=== PATIENT | female | born 1955 | race Caucasian/White ===

== ENCOUNTER → 2016-10-22 | Outpatient (CLI) | payer BC ==
[2016-10-22 09:59] LABS: Basophils # (A) 0.1 k/uL (0-0.2); Basophils % (A) 1 %; CH 27.6; CHCM 33.5; Eosinophils # (A) 0.2 k/uL (0-0.7); Eosinophils % (A) 3 %; HCT 43.1 % (34.0-46.0); HDW 2.62; HGB 14.1 gm/dL (11.4-16.0); Luc % (Auto) 3; Lymphocytes # (A) 1.9 k/uL (1.0-4.8); Lymphocytes % (A) 25 %; MCH 27.1 pg (25.0-35.0); MCHC 32.7 g/dL (31.0-37.0); MCV 82.7 fL (80.0-100.0); Mean Platelet Volume 6.8; Monocytes # (A) 0.4 k/uL (0-1.0); Monocytes % (A) 5 %; Neutrophils # (A) 4.7 k/uL (1.3-7.7); Neutrophils % (A) 63 %; RBC 5.21 m/uL (3.80-5.40); RDW 14.2 % (11.5-15.5); WBC 7.5 k/uL (3.8-10.6); WBC (Perox) 7.05
[2016-10-22 12:03] LABS: Erythrocyte Sedimentation Rate 10 mm/hr (0-20)
[2016-10-22 13:41] LABS: ALT 37 U/L (9-52); AST 22 U/L (14-36); Alkaline Phosphatase 112 U/L (38-126); Anion Gap 13 mmol/L; Blood Urea Nitrogen 11 mg/dL (7-17); C Reactive Protein <5.0 mg/L (<10.0); Calcium 10.2 mg/dL (8.4-10.2); Carbon Dioxide 24 mmol/L (22-30); Chloride 104 mmol/L (98-107); Cholesterol 161 mg/dL (<200); Creatine Kinase 87 U/L (30-135); Glucose 114 mg/dL (74-99); HDL Cholesterol 59 mg/dL (40-60); Non-African American GFR(MDRD) >60 (>60 ml/min/1.73 sqM); Potassium 4.4 mmol/L (3.5-5.1); Sodium 141 mmol/L (137-145); Total Bilirubin 0.6 mg/dL (0.2-1.3); Total Protein 7.7 g/dL (6.3-8.2); Triglycerides 138 mg/dL (<150)
== END | disposition home or self-care (01) ==
LOC: LABWHC1 09:16
PROVIDERS: ATTEND Internal Medicine
DX: Z00.00 Encounter for general adult medical examination without abnormal findings (principal); E87.8 Other disorders of electrolyte and fluid balance, not elsewhere classified; I10 Essential (primary) hypertension; E55.9 Vitamin D deficiency, unspecified; E78.5 Hyperlipidemia, unspecified
CPT/HCPCS: 36415; 80053; 80061; 82306; 82550; 84439; 84443; 85025; 85652; 86140

== ENCOUNTER → 2016-11-27 | Outpatient (CLI) | payer BC ==
--- NOTE | 2016-11-28 13:24 | MM ---
Reason for exam: screening (asymptomatic). Last mammogram was performed 1 year and 11 months ago. History: Patient is postmenopausal. Family history of breast cancer in cousin at age 46. Physical Findings: A clinical breast exam by your physician is recommended on an annual basis and results should be correlated with mammographic findings. MG Screening Mammo w CAD Bilateral CC and MLO view(s) were taken. The breast tissue is heterogeneously dense. This may lower the sensitivity of mammography. Benign calcifications. There is no discrete abnormality. No significant changes when compared with prior studies. ASSESSMENT: Benign, BI-RAD 2 RECOMMENDATION: Routine screening mammogram of both breasts in 1 year.
== END | disposition home or self-care (01) ==
LOC: RADMAMWWP 07:22
PROVIDERS: ATTEND Internal Medicine
DX: Z12.31 Encounter for screening mammogram for malignant neoplasm of breast (principal)

== ENCOUNTER 2017-01-05 08:58 | Outpatient (CLI) | payer BC ==
[2017-01-05 09:31] LABS: Aty Lym Flag Slight; CH 27.4; CHCM 32.4; HCT 44.3 % (34.0-46.0); HDW 2.58; HGB 14.3 gm/dL (11.4-16.0); MCH 27.5 pg (25.0-35.0); MCHC 32.3 g/dL (31.0-37.0); MCV 85.1 fL (80.0-100.0); Mean Platelet Volume 6.6; RBC 5.21 m/uL (3.80-5.40); RDW 14.1 % (11.5-15.5); WBC 6.9 k/uL (3.8-10.6); WBC (Perox) 6.89
[2017-01-05 09:39] LABS: Add Differential Manual Differential
[2017-01-05 09:41] LABS: Nucleated Red Blood Cells 0 /100 WBC (0-0); Polychromasia Present; Total Cells Counted 100
--- NOTE | 2017-01-05 09:41 | XR ---
EXAMINATION TYPE: XR chest 2V DATE OF EXAM: 01/05/2017 9:33 AM COMPARISON: 02/02/2012 HISTORY: 61-year-old female cough, bronchitis, rule out pneumonia TECHNIQUE: Frontal and lateral views FINDINGS: The cardiomediastinal silhouette, aorta, and pulmonary vasculature are within normal limits. Other di ffuse interstitial prominence is unchanged. No consolidation or pleural effusion. Anterior endplate s pondylosis especially in the mid to lower thoracic spine. IMPRESSION: Chronic changes without acute cardiopulmonary process.
--- NOTE | 2017-01-05 09:43 | XR ---
EXAMINATION TYPE: XR thoracic spine complete DATE OF EXAM: 01/05/2017 9:33 AM COMPARISON: NONE HISTORY: 61-year-old female pain for 5 days, evaluate for compression. Rib tenderness. TECHNIQUE: 3 views FINDINGS: 12 rib-bearing thoracic vertebral bodies. The pedicles are visualized. There is mild multilevel degen erative disc disease with bulky bridging anterior endplate spondylosis especially in the mid to lower thoracic spine. Alignment is maintained and vertebral body heights are preserved. IMPRESSION: 1. No vertebral compression collapse or malalignment. 2. At least mild multilevel degenerative disc disease though with bulky bridging endplate spondylosis in the mid to lower thoracic spine suggestive of DISH.
== END 2017-01-05 09:43 | disposition home or self-care (01) ==
LOC: LABWHC1 08:58
PROVIDERS: ATTEND Internal Medicine
DX: J40 Bronchitis, not specified as acute or chronic (principal); M51.34 Other intervertebral disc degeneration, thoracic region; M47.814 Spondylosis without myelopathy or radiculopathy, thoracic region; R07.81 Pleurodynia
CPT/HCPCS: 36415; 71020; 72072; 85025; 87502; 99212

== ENCOUNTER → 2017-10-12 | Outpatient (CLI) | payer BC ==
[2017-10-12 12:07] LABS: Anion Gap 10 mmol/L; Blood Urea Nitrogen 9 mg/dL (7-17); Calcium 9.7 mg/dL (8.4-10.2); Carbon Dioxide 28 mmol/L (22-30); Chloride 105 mmol/L (98-107); Glucose 110 mg/dL (74-99); Potassium 4.7 mmol/L (3.5-5.1); Sodium 143 mmol/L (137-145)
[2017-10-12 12:22] LABS: T4, Free (Free Thyroxine) 1.02 ng/dL (0.78-2.19)
== END ==
LOC: LABWHC1 10:33
PROVIDERS: ATTEND Internal Medicine
DX: E87.8 Other disorders of electrolyte and fluid balance, not elsewhere classified (principal); E03.9 Hypothyroidism, unspecified
CPT/HCPCS: 36415; 80048; 84439; 84443

== ENCOUNTER → 2018-03-18 | Outpatient (CLI) | payer BC ==
--- NOTE | 2018-03-19 10:31 | MM ---
Reason for exam: screening (asymptomatic). Last mammogram was performed 1 year and 4 months ago. History: Patient is postmenopausal. Family history of breast cancer in cousin at age 46. Physical Findings: A clinical breast exam by your physician is recommended on an annual basis and results should be correlated with mammographic findings. MG Screening Mammo w CAD Bilateral CC and MLO view(s) were taken. Prior study comparison: November 27, 2016, bilateral MG screening mammo w CAD. December 28, 2014, bilateral MG screening mammo w CAD. The breast tissue is heterogeneously dense. This may lower the sensitivity of mammography. Benign appearing bilateral calcifications. No suspicious abnormality. No significant changes when compared with prior studies. ASSESSMENT: Benign, BI-RAD 2 RECOMMENDATION: Routine screening mammogram of both breasts in 1 year.
== END | disposition home or self-care (01) ==
LOC: RADMAMWWP 06:56
PROVIDERS: ATTEND Internal Medicine
DX: Z12.31 Encounter for screening mammogram for malignant neoplasm of breast (principal)
CPT/HCPCS: 77067

== ENCOUNTER → 2018-05-28 | Outpatient (CLI) | payer MEDICARE, OTHER ==
--- NOTE | 2018-05-28 16:30 | XR ---
EXAMINATION TYPE: XR elbow complete RT DATE OF EXAM: 05/28/2018 COMPARISON: None HISTORY: Tendinitis TECHNIQUE: Three-view right elbow FINDINGS: No anterior fat pad elevation is evident. There may be calcifications in the posterior join t space. Radius aligns normally with the humerus. Degenerative changes are radial head IMPRESSION: 1. Degenerative changes without acute fracture. 2. Suspected free osseous bodies within the posterior joint space
== END | disposition home or self-care (01) ==
LOC: RADXRMAIN 07:20
PROVIDERS: ATTEND Internal Medicine
DX: M19.021 Primary osteoarthritis, right elbow (principal)

== ENCOUNTER → 2018-10-02 | Outpatient (CLI) | payer MEDICARE, OTHER ==
[2018-10-02 09:42] LABS: Basophils # (A) 0.1 k/uL (0-0.2); Basophils % (A) 1 %; Eosinophils # (A) 0.1 k/uL (0-0.7); Eosinophils % (A) 1 %; HCT 43.1 % (34.0-46.0); Lymphocytes % (A) 10 %; MCH 26.6 pg (25.0-35.0); MCHC 32.4 g/dL (31.0-37.0); MCV 82.1 fL (80.0-100.0); Mean Platelet Volume 6.4; Monocytes # (A) 0.5 k/uL (0-1.0); Monocytes % (A) 5 %; Neutrophils # (A) 8.8 k/uL (1.3-7.7); Neutrophils % (A) 82 %; Platelet Count 308 k/uL (150-450); RBC 5.25 m/uL (3.80-5.40); RDW 14.2 % (11.5-15.5); WBC 10.7 k/uL (3.8-10.6)
[2018-10-02 11:51] LABS: Erythrocyte Sedimentation Rate 18 mm/hr (0-20)
[2018-10-02 17:24] LABS: Albumin 4.5 g/dL (3.80-4.90); Albumin/Globulin Ratio 1.96 (1.20-2.10); Calcium 9.2 mg/dL (8.7-10.3); Globulin 2.3 g/dL (1.6-3.3); LDL Cholesterol,Calculated 78.6 mg/dL (0.0-131.0); Potassium 4.1 mmol/L (3.5-5.5); Total Bilirubin 0.7 mg/dL (0.3-1.2); Total Protein 6.8 g/dL (6.2-8.2); VLDL Calculation 21.4 mg/dL (5.00-40.00)
[2018-10-02 17:32] LABS: T4, Free (Free Thyroxine) 1.1 ng/dL (0.80-1.80)
== END ==
LOC: LABWHC1 08:17
PROVIDERS: ATTEND Internal Medicine
DX: E78.5 Hyperlipidemia, unspecified (principal); E55.9 Vitamin D deficiency, unspecified; I10 Essential (primary) hypertension
CPT/HCPCS: 36415; 80053; 80061; 82306; 82550; 84439; 84443; 85025; 85652; 86140

== ENCOUNTER → 2019-04-27 | Outpatient (CLI) | payer MEDICARE, OTHER ==
[2019-04-27 12:21] LABS: Basophils # (A) 0.1 k/uL (0-0.2); Basophils % (A) 1 %; Eosinophils # (A) 0.2 k/uL (0-0.7); Eosinophils % (A) 3 %; HCT 42.3 % (34.0-46.0); HGB 13.6 gm/dL (11.4-16.0); Lymphocytes # (A) 1.7 k/uL (1.0-4.8); Lymphocytes % (A) 24 %; MCH 26.8 pg (25.0-35.0); MCHC 32.1 g/dL (31.0-37.0); MCV 83.4 fL (80.0-100.0); Mean Platelet Volume 7.4; Monocytes # (A) 0.4 k/uL (0-1.0); Monocytes % (A) 6 %; Neutrophils # (A) 4.8 k/uL (1.3-7.7); Neutrophils % (A) 65 %; Platelet Count 257 k/uL (150-450); RBC 5.07 m/uL (3.80-5.40); RDW 15.6 % (11.5-15.5); WBC 7.4 k/uL (3.8-10.6)
[2019-04-27 17:51] LABS: C Reactive Protein 0.4 mg/dL (0.0-0.8)
== END | disposition home or self-care (01) ==
LOC: LABWHC1 11:08
PROVIDERS: ATTEND Internal Medicine
DX: E11.9 Type 2 diabetes mellitus without complications (principal); E78.5 Hyperlipidemia, unspecified; I10 Essential (primary) hypertension; E55.9 Vitamin D deficiency, unspecified; R79.89 Other specified abnormal findings of blood chemistry
CPT/HCPCS: 36415; 82306; 82947; 85025; 86140

== ENCOUNTER → 2019-06-12 | Outpatient (CLI) | payer MEDICARE, OTHER ==
--- NOTE | 2019-06-15 08:23 | MM ---
Reason for exam: screening (asymptomatic). Last mammogram was performed 1 year and 3 months ago. History: Patient is postmenopausal. Family history of breast cancer in cousin at age 46. Physical Findings: A clinical breast exam by your physician is recommended on an annual basis and results should be correlated with mammographic findings. MG Screening Mammo w CAD Bilateral CC and MLO view(s) were taken. Prior study comparison: March 18, 2018, bilateral MG screening mammo w CAD. November 27, 2016, bilateral MG screening mammo w CAD. The breast tissue is heterogeneously dense. This may lower the sensitivity of mammography. There are benign appearing round, linear, dystrophic calcifications bilaterally. There is no discrete abnormality. ASSESSMENT: Benign, BI-RAD 2 RECOMMENDATION: Routine screening mammogram of both breasts in 1 year.
== END | disposition home or self-care (01) ==
LOC: RADMAMWWP 06:59
PROVIDERS: ATTEND Internal Medicine
DX: Z12.31 Encounter for screening mammogram for malignant neoplasm of breast (principal); Z90.12 Acquired absence of left breast and nipple
CPT/HCPCS: 77067

== ENCOUNTER → 2020-06-24 | Outpatient (CLI) | payer MEDICARE, OTHER ==
[2020-06-24 09:39] LABS: Basophils # (A) 0.1 k/uL (0-0.2); Basophils % (A) 1 %; Eosinophils # (A) 0.3 k/uL (0-0.7); Eosinophils % (A) 4 %; HCT 41.4 % (34.0-46.0); Lymphocytes # (A) 1.8 k/uL (1.0-4.8); Lymphocytes % (A) 26 %; MCH 27.3 pg (25.0-35.0); MCHC 33.9 g/dL (31.0-37.0); MCV 80.7 fL (80.0-100.0); Mean Platelet Volume 6.9; Monocytes # (A) 0.5 k/uL (0-1.0); Monocytes % (A) 8 %; Neutrophils # (A) 4.3 k/uL (1.3-7.7); Neutrophils % (A) 60 %; Platelet Count 270 k/uL (150-450); RBC 5.12 m/uL (3.80-5.40); RDW 14.2 % (11.5-15.5); WBC 7.2 k/uL (3.8-10.6)
[2020-06-24 16:21] LABS: African American GFR (CKD) 103.9 (60.0-200.0); Albumin 4.3 g/dL (3.80-4.90); Albumin/Globulin Ratio 1.79 (1.60-3.17); Anion Gap 9.2 mmol/L (4.00-12.00); BUN/Creat Ratio 18.57 Ratio (12.00-20.00); Calcium 9.4 mg/dL (8.7-10.3); Carbon Dioxide 23.8 mmol/L (21.6-31.8); Chol/HDL Ratio 3.11; Globulin 2.4 g/dL (1.6-3.3); Non-African American GFR(CKD) 89.7 (60.0-200.0); Potassium 4.1 mmol/L (3.5-5.5); Total Bilirubin 0.8 mg/dL (0.3-1.2); Total Protein 6.7 g/dL (6.2-8.2)
[2020-06-24 16:32] LABS: Erythrocyte Sedimentation Rate 17 mm/Hr (0-30)
[2020-06-24 16:34] LABS: T4, Free (Free Thyroxine) 0.9 ng/dL (0.80-1.80)
== END | disposition home or self-care (01) ==
LOC: LABWHC1 08:11
PROVIDERS: ATTEND Internal Medicine
DX: I10 Essential (primary) hypertension (principal); E78.5 Hyperlipidemia, unspecified; E03.9 Hypothyroidism, unspecified; E66.9 Obesity, unspecified
CPT/HCPCS: 36415; 80053; 80061; 84439; 84443; 85025; 85652

== ENCOUNTER → 2020-09-22 | Outpatient (CLI) | payer MEDICARE, OTHER ==
[2020-09-22 09:16] LABS: Basophils % (A) 1 %; Eosinophils # (A) 0.2 k/uL (0-0.7); Eosinophils % (A) 2 %; HCT 38.3 % (34.0-46.0); HGB 13.1 gm/dL (11.4-16.0); Lymphocytes # (A) 1.3 k/uL (1.0-4.8); Lymphocytes % (A) 19 %; MCH 27.9 pg (25.0-35.0); MCHC 34.2 g/dL (31.0-37.0); MCV 81.5 fL (80.0-100.0); Mean Platelet Volume 6.9; Monocytes # (A) 0.5 k/uL (0-1.0); Monocytes % (A) 7 %; Neutrophils # (A) 4.9 k/uL (1.3-7.7); Neutrophils % (A) 69 %; Platelet Count 249 k/uL (150-450); RDW 14.3 % (11.5-15.5); WBC 7.1 k/uL (3.8-10.6)
[2020-09-22 14:57] LABS: ALT 24 U/L (8-44); AST 18 U/L (13-35); African American GFR (CKD) 103.9 (60.0-200.0); Albumin/Globulin Ratio 1.88 (1.60-3.17); Alkaline Phosphatase 105 U/L (41-126); C Reactive Protein <0.4 mg/dL (0.0-0.8); Calcium 9.2 mg/dL (8.7-10.3); Carbon Dioxide 26.8 mmol/L (21.6-31.8); Chloride 105 mmol/L (96-109); Globulin 2.4 g/dL (1.6-3.3); Glucose 113 mg/dL (70-110); Non-African American GFR(CKD) 89.7 (60.0-200.0); Sodium 140 mmol/L (135-145); Total Bilirubin 0.6 mg/dL (0.3-1.2); Total Protein 6.9 g/dL (6.2-8.2)
== END | disposition home or self-care (01) ==
LOC: LABWHC1 08:04
PROVIDERS: ATTEND Internal Medicine
DX: Z00.00 Encounter for general adult medical examination without abnormal findings (principal); E55.9 Vitamin D deficiency, unspecified; E03.9 Hypothyroidism, unspecified; E78.5 Hyperlipidemia, unspecified; D64.9 Anemia, unspecified
CPT/HCPCS: 36415; 80053; 82306; 84443; 85025; 86140

== ENCOUNTER 2020-12-01 09:15 | Emergency (ER) | payer MEDICARE, OTHER ==
--- NOTE | 2020-12-01 10:15 | ED ---
Headache HPI - General Chief Complaint: Headache Stated Complaint: Fever, Headache Time Seen by Provider: 12/01/20 09:20 Source: RN notes reviewed Mode of arrival: ambulatory Limitations: no limitations - History of Present Illness Initial Comments: This is a 65-year-old female who presents with complaints of waking up with a right-sided forehead type pain with the fever some congestion. He states pain is 4/10 severity somewhat dull in nature. No earache sore throat she does have slight amount of clear rhinorrhea no cough no shortness of breath. She states she was recently exposed to someone with SARS Covid 19. Additionally she complains a left shoulder pain she states her mother who now lives with her balance she caught her sinuses a couple days ago. She complains of anterior right shoulder pain. No other complaints MD Complaint: headache, other - Related Data Home Medications Medication Instructions Recorded Confirmed Atorvastatin [Lipitor] 20 mg PO DAILY 11/10/14 11/10/15 Levothyroxine Sodium [Synthroid] 100 mcg PO DAILY 11/10/14 11/10/15 Lisinopril [Zestril] 10 mg PO BID 11/10/14 11/10/15 Levofloxacin [Levaquin] 750 mg PO DAILY 11/10/15 11/10/15 Previous Rx's Medication Instructions Recorded Azithromycin [Zithromax Z-pack (6 250 mg PO DIRECTED 5 Days #6 tab 12/01/20 tabs)] Allergies Allergy/AdvReac Type Severity Reaction Status Date / Time acetaminophen Allergy Rash/Hives Verified 12/01/20 09:20 [From Darvocet-N] cephalexin monohydrate Allergy Nausea & Verified 12/01/20 09:20 [From Keflex] Vomiting latex Allergy Rash/Hives Verified 12/01/20 09:20 nickel Allergy Swelling Verified 12/01/20 09:20 Penicillins Allergy Rash/Hives Verified 12/01/20 09:20 propoxyphene napsylate Allergy Rash/Hives Verified 12/01/20 09:20 [From Darvocet-N] sulfamethoxazole Allergy Rash/Hives Verified 12/01/20 09:20 [From Bactrim] trimethoprim [From Bactrim] Allergy Rash/Hives Verified 12/01/20 09:20 Review of Systems ROS Statement: Those systems with pertinent positive or pertinent negative responses have been documented in the HPI. ROS Other: All systems not noted in ROS Statement are negative. Past Medical History Past Medical History: Hyperlipidemia, Hypertension, Thyroid Disorder History of Any Multi-Drug Resistant Organisms: None Reported Past Surgical History: Orthopedic Surgery, Tubal Ligation Additional Past Surgical History / Comment(s): rt knee Past Psychological History: No Psychological Hx Reported Past Alcohol Use History: None Reported Past Drug Use History: None Reported General Exam - General Exam Comments Initial Comments: This a well-developed well-nourished awake alert oriented 3 female Limitations: no limitations General appearance: alert Head exam: Present: atraumatic, normocephalic, normal inspection, other ( Tenderness to percussion over right frontal sinus) Eye exam: Present: normal appearance, PERRL, EOMI. Absent: scleral icterus, conjunctival injection, periorbital swelling ENT exam: Present: TM's normal bilaterally, other (Boggy nasal mucosa no drainage at this time) Neck exam: Present: normal inspection, tenderness (Tenderness palpation over the left trapezius musculature. No spinous process tenderness), full ROM ( is muscle tenderness) Respiratory exam: Present: normal lung sounds bilaterally. Absent: respiratory distress, wheezes, rales, rhonchi, stridor Cardiovascular Exam: Present: regular rate, normal rhythm, normal heart sounds. Absent: systolic murmur, diastolic murmur, rubs, gallop, clicks Extremities exam: Present: normal inspection, full ROM, tenderness (Slight facial left anterior), normal capillary refill. Absent: pedal edema, joint swelling, calf tenderness Back exam: Present: normal inspection, full ROM. Absent: muscle spasm, paraspinal tenderness, vertebral tenderness Psychiatric exam: Present: normal affect, normal mood Skin exam: Present: warm, dry, intact, normal color. Absent: rash Course Vital Signs 12/01/20 09:16 Temperature 99.0 F Pulse Rate 69 Respiratory 16 Rate Blood Pressure 163/81 O2 Sat by Pulse 98 Oximetry Medical Decision Making - Medical Decision Making Patient did test negative for the various nasal swab. The presentation is consistent with a frontal sinusitis as well as a left shoulder strain. Did discuss the shoulder strain she'll be placed warm compresses on the affected muscle groups and use [id number] pain medication for this with respect to the sinusitis he will be placed on appropriate antibiotic and we did recommend Mucinex. - Lab Data Lab Results 12/01/20 Range/Units 09:53 Influenza Type A (PCR) Not Detected (Not Detectd) Influenza Type B (PCR) Not Detected (Not Detectd) RSV (PCR) Not Detected (Not Detectd) SARS-CoV-2 (PCR) Not Detected (Not Detectd) - Radiology Data Radiology results: report reviewed (I did review the imaging and report no acute findings), image reviewed Disposition Clinical Impression: Acute frontal sinusitis, Left shoulder strain, Febrile illness, acute, Headache Disposition: HOME SELF-CARE Condition: Good Instructions (If sedation given, give patient instructions): Acute Headache (ED), Sinusitis (ED), Fever in Adults (ED) Additional Instructions: Rhfe-qiq-vuoppos Mucinex for the sinuses. [id number]-[id number] ibuprofen for the left shoulder strain Prescriptions: Azithromycin [Zithromax Z-pack (6 tabs)] 250 mg PO DIRECTED 5 Days #6 tab Is patient prescribed a controlled substance at d/c from ED?: No Referrals: Mehran Crowder MD [Primary Care Provider] - 1-2 days
--- NOTE | 2020-12-01 10:53 | XR ---
EXAMINATION TYPE: XR shoulder complete LT DATE OF EXAM: 12/01/2020 CLINICAL HISTORY: Injury with pain. TECHNIQUE: Three views of the left shoulder are obtained. COMPARISON: None. FINDINGS: There is no acute fracture/dislocation evident in the left shoulder. Mild to moderate narr owing and mild spurring acromioclavicular joint. Mild narrowing and spurring glenohumeral joint. Dis geoffrey acromion morphology unremarkable. There are old fractures of the posterolateral right sixth and s eventh ribs incidentally noted. IMPRESSION: There is no acute fracture or dislocation in the left shoulder.
[2020-12-01 12:12] VITALS: BP 133/91; PULSE 60; RESP 18; TEMP 99
== END 2020-12-01 12:10 | disposition home or self-care (01) ==
LOC: EC 09:15
DX: S46.912A Strain of unspecified muscle, fascia and tendon at shoulder and upper arm level, left arm, initial encounter (principal); J01.10 Acute frontal sinusitis, unspecified; I10 Essential (primary) hypertension; E78.5 Hyperlipidemia, unspecified; Z88.0 Allergy status to penicillin; Z20.822 Contact with and (suspected) exposure to COVID-19; X58.XXXA Exposure to other specified factors, initial encounter
CPT/HCPCS: 87636; 99284

== ENCOUNTER → 2021-04-03 | Outpatient (CLI) | payer MEDICARE, OTHER ==
--- NOTE | 2021-04-06 09:42 | MM ---
Reason for exam: screening (asymptomatic). Last mammogram was performed 1 year and 10 months ago. History: Patient is postmenopausal. Family history of breast cancer in cousin at age 46. Physical Findings: A clinical breast exam by your physician is recommended on an annual basis and results should be correlated with mammographic findings. MG Screening Mammo w CAD Bilateral CC and MLO view(s) were taken. Prior study comparison: June 12, 2019, bilateral MG screening mammo w CAD. March 18, 2018, bilateral MG screening mammo w CAD. There are scattered fibroglandular densities. No significant changes when compared with prior studies. ASSESSMENT: Benign, BI-RAD 2 RECOMMENDATION: Routine screening mammogram of both breasts in 1 year.
== END | disposition home or self-care (01) ==
LOC: RADMAMWWP 16:15
PROVIDERS: ATTEND Internal Medicine
DX: Z12.31 Encounter for screening mammogram for malignant neoplasm of breast (principal); Z78.0 Asymptomatic menopausal state; Z80.3 Family history of malignant neoplasm of breast
CPT/HCPCS: 77067

== ENCOUNTER → 2021-11-09 | Outpatient (CLI) | payer MEDICARE, OTHER ==
[2021-11-09 18:54] LABS: Basophils # (A) 0.06 X 10*3/uL (0.00-0.10); Basophils % (A) 0.7 %; Eosinophils # (A) 0.25 X 10*3/uL (0.04-0.35); Eosinophils % (A) 2.9 %; HCT 43.7 % (37.2-46.3); HGB 13.9 g/dL (12.0-15.0); Immature Grans, Automated 0.4 %; Lymphocytes # (A) 1.82 X 10*3/uL (0.90-5.00); Lymphocytes % (A) 21.5 %; MCH 26.6 pg (27.0-32.0); MCHC 31.8 g/dL (32.0-37.0); MCV 83.6 fL (80.0-97.0); Mean Platelet Volume 9.9 fL (9.5-12.2); Monocytes # (A) 0.72 X 10*3/uL (0.20-1.00); Monocytes % (A) 8.5 %; NRBC Per 100 WBC 0 /100 WBCS (0.0-0.0); Platelet Count 299 X 10*3/uL (140-440); RBC 5.23 X 10*6/uL (4.10-5.20); WBC 8.48 X 10*3/uL (4.50-10.00)
[2021-11-09 19:06] LABS: Chol/HDL Ratio 2.91 Ratio; LDL Cholesterol,Calculated 74.5 mg/dL (0.0-131.0)
[2021-11-09 19:07] LABS: ALT 31 U/L (8-44); AST 26 U/L (13-35); African American GFR (CKD) 102.7 (60.0-200.0); Albumin 4.5 g/dL (3.8-4.9); Albumin/Globulin Ratio 1.32 (1.60-3.17); Alkaline Phosphatase 105 U/L (41-126); BUN/Creat Ratio 15.36 Ratio (12.00-20.00); Blood Urea Nitrogen 10.8 mg/dL (9.0-27.0); Calcium 9.7 mg/dL (8.7-10.3); Carbon Dioxide 21.9 mmol/L (20.0-27.5); Chloride 103 mmol/L (96-109); Creatine Kinase 136 U/L (26-186); Globulin 3.4 g/dL (1.6-3.3); Glucose 114 mg/dL (70-110); Non-African American GFR(CKD) 88.6 (60.0-200.0); Phosphorus 3.8 mg/dL (2.4-5.1); Potassium 4.2 mmol/L (3.5-5.5); Sodium 139 mmol/L (135-145); Total Protein 7.8 g/dL (6.2-8.2); Uric Acid 4.8 mg/dL (2.9-7.7)
[2021-11-09 20:36] LABS: Erythrocyte Sedimentation Rate 14 mm/Hr (0-30)
== END | disposition home or self-care (01) ==
LOC: LABWHC1 10:35
PROVIDERS: ATTEND Internal Medicine
DX: Z00.00 Encounter for general adult medical examination without abnormal findings (principal); I10 Essential (primary) hypertension; D64.9 Anemia, unspecified; E55.9 Vitamin D deficiency, unspecified; E78.5 Hyperlipidemia, unspecified; E66.9 Obesity, unspecified; M81.0 Age-related osteoporosis without current pathological fracture; M10.9 Gout, unspecified
CPT/HCPCS: 36415; 80053; 80061; 82306; 82550; 83735; 84100; 84439; 84443; 84550; 85025; 85652; 86140

== ENCOUNTER → 2022-03-22 | Outpatient (CLI) | payer MEDICARE, OTHER | END | disposition home or self-care (01) | LOC: RADMAMWWP 10:14 | PROVIDERS: ATTEND Internal Medicine | DX: Z53.9 Procedure and treatment not carried out, unspecified reason (principal) ==

== ENCOUNTER → 2022-05-10 | Outpatient (CLI) | payer MEDICARE, OTHER ==
--- NOTE | 2022-05-11 15:50 | MM ---
Reason for Exam: Screening (asymptomatic). Last mammogram was performed 1 year(s) and 1 month(s) ago. Patient History: Menarche at age 10. First Full-Term at age 23. Postmenopausal. Maternal cousin had breast cancer, age 46. Risk Values: Lore 5 year model risk: 1.9%. NCI Lifetime model risk: 5.9%. Prior Study Comparison: 03/18/2018 Bilateral Screening Mammogram, [facility]. 06/12/2019 Bilateral Screening Mammogram, [facility]. 04/03/2021 Bilateral Screening Mammogram, [facility]. Tissue Density: There are scattered fibroglandular densities. Findings: Analyzed By CAD. Benign-appearing calcifications are present bilaterally. No suspicious groups of microcalcifications, spiculated or lobular masses, architectural distortion or other secondary signs of malignancy are mammographically apparent. Overall Assessment: Benign, BI-RAD 2 Management: Screening Mammogram of both breasts in 1 year. A negative mammogram report should not preclude additional follow up of suspicious palpable abnormalities. Patient should continue monthly self breast exam. A clinical breast exam by your physician is recommended on an annual basis and results should be correlated with mammographic findings. Electronically signed and approved by: Casper Elliott D.O. Radiologis
== END | disposition home or self-care (01) ==
LOC: RADMAMWWP 16:03
PROVIDERS: ATTEND Internal Medicine
DX: Z12.31 Encounter for screening mammogram for malignant neoplasm of breast (principal); Z78.0 Asymptomatic menopausal state; Z80.3 Family history of malignant neoplasm of breast
CPT/HCPCS: 77063; 77067

== ENCOUNTER → 2022-07-19 | Outpatient (CLI) | payer MEDICARE, OTHER ==
[2022-07-19 20:36] LABS: T4, Free (Free Thyroxine) 0.96 ng/dL (0.800-1.800)
== END | disposition home or self-care (01) ==
LOC: LABWHC1 11:36
PROVIDERS: ATTEND Internal Medicine
DX: E03.9 Hypothyroidism, unspecified (principal)
CPT/HCPCS: 36415; 84439; 84443

== ENCOUNTER → 2022-10-25 | Outpatient (CLI) | payer MEDICARE, OTHER ==
[2022-10-25 19:26] LABS: Basophils # (A) 0.05 X 10*3/uL (0.00-0.10); Basophils % (A) 0.5 %; Eosinophils # (A) 0.26 X 10*3/uL (0.04-0.35); Eosinophils % (A) 2.9 %; Immature Grans, Automated 0.2 %; Lymphocytes # (A) 2.02 X 10*3/uL (0.90-5.00); Lymphocytes % (A) 22.2 %; MCH 26.5 pg (27.0-32.0); MCHC 31.7 g/dL (32.0-37.0); MCV 83.7 fL (80.0-97.0); Monocytes # (A) 0.68 X 10*3/uL (0.20-1.00); Monocytes % (A) 7.5 %; NRBC Per 100 WBC 0 /100 WBCS (0.0-0.0); Neutrophils # (A) 6.08 X 10*3/uL (1.80-7.70); Neutrophils % (A) 66.7 %; Platelet Count 276 X 10*3/uL (140-440); RDW 14.7 % (11.5-14.5); WBC 9.11 X 10*3/uL (4.50-10.00)
[2022-10-25 19:34] LABS: Erythrocyte Sedimentation Rate 34 mm/Hr (0-30)
[2022-10-25 19:53] LABS: ALT 23 U/L (8-44); AST 21 U/L (13-35); African American GFR (CKD) 87.2 (60.0-200.0); Albumin 4.5 g/dL (3.8-4.9); Albumin/Globulin Ratio 1.55 (1.60-3.17); Alkaline Phosphatase 104 U/L (41-126); BUN/Creat Ratio 14.38 Ratio (12.00-20.00); Blood Urea Nitrogen 11.5 mg/dL (9.0-27.0); Calcium 9.7 mg/dL (8.7-10.3); Carbon Dioxide 24.6 mmol/L (20.0-27.5); Chloride 104 mmol/L (96-109); Creatine Kinase 111 U/L (26-186); Globulin 2.9 g/dL (1.6-3.3); Glucose 99 mg/dL (70-110); Non-African American GFR(CKD) 75.2 (60.0-200.0); Phosphorus 3.5 mg/dL (2.4-5.1); Potassium 4.4 mmol/L (3.5-5.5); Sodium 140 mmol/L (135-145); Total Protein 7.4 g/dL (6.2-8.2); Uric Acid 5.7 mg/dL (2.9-7.7)
[2022-10-25 20:01] LABS: C Reactive Protein <0.30 mg/dL (0.00-0.80); Chol/HDL Ratio 2.88 Ratio; LDL Cholesterol,Calculated 64.3 mg/dL (0.0-131.0)
== END | disposition home or self-care (01) ==
LOC: LABWHC1 12:40
PROVIDERS: ATTEND Internal Medicine
DX: I10 Essential (primary) hypertension (principal); D64.9 Anemia, unspecified; E78.5 Hyperlipidemia, unspecified; E03.9 Hypothyroidism, unspecified; E55.9 Vitamin D deficiency, unspecified; E66.9 Obesity, unspecified
CPT/HCPCS: 36415; 80053; 80061; 82306; 82550; 83735; 84100; 84439; 84443; 84550; 85025; 85652; 86140

== ENCOUNTER → 2023-04-10 | Outpatient (CLI) | payer MEDICARE, OTHER ==
[2023-04-10 15:32] LABS: Basophils # (A) 0.06 X 10*3/uL (0.00-0.10); Basophils % (A) 0.7 %; Eosinophils # (A) 0.21 X 10*3/uL (0.04-0.35); Eosinophils % (A) 2.6 %; HCT 43.5 % (37.2-46.3); HGB 14.2 d/dL (12.0-15.0); Lymphocytes # (A) 1.91 X 10*3/uL (0.90-5.00); Lymphocytes % (A) 23.3 %; MCH 27.4 pg (27.0-32.0); MCHC 32.6 d/dL (32.0-37.0); MCV 83.8 FL (80.0-97.0); Mean Platelet Volume 9.8 FL (9.5-12.2); Monocytes # (A) 0.73 X 10*3/uL (0.20-1.00); Monocytes % (A) 8.9 %; NRBC Per 100 WBC 0 X 10*3/uL (0.00-0.01); Neutrophils # (A) 5.27 X 10*3/uL (1.80-7.70); Neutrophils % (A) 64.1 %; Platelet Count 275 X 10*3/uL (140-440); RBC 5.19 X 10*6/uL (4.10-5.20); RDW 14.4 % (11.5-14.5); WBC 8.21 X 10*3/uL (4.50-10.00)
[2023-04-10 16:14] LABS: Erythrocyte Sedimentation Rate 15 mm/Hr (0-30)
[2023-04-10 16:52] LABS: ALT 26 U/L (8-44); AST 21 U/L (13-35); Albumin 4.5 d/dL (3.8-4.9); Albumin/Globulin Ratio 1.45 Ratio (1.60-3.17); Alkaline Phosphatase 108 U/L (41-126); BUN/Creat Ratio 13.88 Ratio (12.00-20.00); Blood Urea Nitrogen 11.1 mg/dL (9.0-27.0); C Reactive Protein <0.30 mg/dL (0.00-0.80); Calcium 9.7 mg/dL (8.7-10.3); Carbon Dioxide 26.1 mmol/L (21.6-31.8); Chloride 104 mmol/L (96-109); Chol/HDL Ratio 2.96 Ratio; Creatine Kinase 100 U/L (26-186); Globulin 3.1 d/dL (1.6-3.3); Glucose 113 mg/dL (70-110); Phosphorus 3.7 mg/dL (2.4-5.1); Potassium 4.6 mmol/L (3.5-5.5); Sodium 142 mmol/L (135-145); T4, Free (Free Thyroxine) 1.55 ng/dL (0.80-1.80); Total Bilirubin 0.5 mg/dL (0.3-1.2); Total Protein 7.6 d/dL (6.2-8.2); Uric Acid 5.7 mg/dL (2.9-7.7)
== END | disposition home or self-care (01) ==
LOC: LABWHC1 11:32
PROVIDERS: ATTEND Internal Medicine
DX: Z00.00 Encounter for general adult medical examination without abnormal findings (principal); I10 Essential (primary) hypertension; D64.9 Anemia, unspecified; J44.9 Chronic obstructive pulmonary disease, unspecified; E03.9 Hypothyroidism, unspecified; M10.9 Gout, unspecified; E78.5 Hyperlipidemia, unspecified; E55.9 Vitamin D deficiency, unspecified
CPT/HCPCS: 36415; 80053; 80061; 82306; 82550; 83735; 84100; 84439; 84443; 84550; 85025; 85652; 86140

== ENCOUNTER → 2023-06-13 | Outpatient (CLI) | payer MEDICARE, OTHER ==
--- NOTE | 2023-06-14 22:51 | MM ---
Reason for Exam: Screening (asymptomatic). Last mammogram was performed 1 year(s) and 1 month(s) ago. Patient History: Menarche at age 10. First Full-Term at age 23. Postmenopausal. Maternal cousin had breast cancer, age 46. Risk Values: Lore 5 year model risk: 1.9%. NCI Lifetime model risk: 5.6%. Prior Study Comparison: 06/12/2019 Bilateral Screening Mammogram, [facility]. 04/03/2021 Bilateral Screening Mammogram, [facility]. 05/10/2022 Bilateral MG 3D screening mammo w/cad, [facility]. Tissue Density: There are scattered fibroglandular densities. Findings: Analyzed By CAD. Benign bilateral secretory calcifications are redemonstrated. There is no suspicious group of microcalcifications or new suspicious mass in either breast. Overall Assessment: Benign, BI-RAD 2 Management: Screening Mammogram of both breasts in 1 year. . Patient should continue monthly self-breast exams. A clinical breast exam by your physician is recommended on an annual basis. This exam should not preclude additional follow-up of suspicious palpable abnormalities. Note on Lore scores and lifetime risk: 1. A Lore score greater than 3% is considered moderate risk. If this is the case, consider specialist referral to assess eligibility for a risk reducing agent. 2. If overall lifetime risk for the development of breast cancer is 20% or higher, the patient may qualify for future screening with alternating mammogram and breast MRI. Electronically signed and approved by: Flory Tovar M.D. Radiologist
== END | disposition home or self-care (01) ==
LOC: RADMAMWWP 11:28
PROVIDERS: ATTEND Internal Medicine
DX: Z12.31 Encounter for screening mammogram for malignant neoplasm of breast (principal); Z78.0 Asymptomatic menopausal state; Z80.3 Family history of malignant neoplasm of breast
CPT/HCPCS: 77063; 77067

== ENCOUNTER 2023-10-06 08:14 | Emergency (ER) | payer MEDICARE, OTHER ==
--- NOTE | 2023-10-06 08:18 | ED ---
General Adult HPI - General Stated complaint: Chest pain.Back pain Time Seen by Provider: 10/06/23 08:17 Source: patient, RN notes reviewed Mode of arrival: ambulatory Limitations: no limitations - History of Present Illness Initial comments: 68-year-old female presents emergency Department chief complaint of shortness of breath. Patient states she's been sick for over a week she was diagnosed with ear infection, pneumonia on antibiotics she initially started feeling better but states that she's felt worse again. She states she's developed some chest tightness, shortness of breath she did have some relief initially with her inhaler. Patient's concern her morning has worsened. She also complains of some mild abdominal discomfort, GI upset. - Related Data Home Medications Medication Instructions Recorded Confirmed Atorvastatin [Lipitor] 20 mg PO DAILY 11/10/14 11/10/15 Levothyroxine Sodium [Synthroid] 100 mcg PO DAILY 11/10/14 11/10/15 lisinopriL [Zestril] 10 mg PO BID 11/10/14 11/10/15 Levofloxacin [Levaquin] 750 mg PO DAILY 11/10/15 11/10/15 Previous Rx's Medication Instructions Recorded Azithromycin [Zithromax Z-pack (6 250 mg PO DIRECTED 5 Days #6 tab 12/01/20 tabs)] Benzonatate [Tessalon Perles] 100 mg PO TID PRN #15 capsule 10/06/23 Allergies Allergy/AdvReac Type Severity Reaction Status Date / Time acetaminophen Allergy Rash/Hives Verified 10/06/23 08:27 [From Darvocet-N] cephalexin monohydrate Allergy Nausea & Verified 10/06/23 08:27 [From Keflex] Vomiting latex Allergy Rash/Hives Verified 10/06/23 08:27 nickel Allergy Swelling Verified 10/06/23 08:27 Penicillins Allergy Rash/Hives Verified 10/06/23 08:27 propoxyphene napsylate Allergy Rash/Hives Verified 10/06/23 08:27 [From Darvocet-N] sulfamethoxazole Allergy Rash/Hives Verified 10/06/23 08:27 [From Bactrim] trimethoprim [From Bactrim] Allergy Rash/Hives Verified 10/06/23 08:27 Review of Systems ROS Statement: Those systems with pertinent positive or pertinent negative responses have been documented in the HPI. ROS Other: All systems not noted in ROS Statement are negative. Past Medical History Past Medical History: Hyperlipidemia, Hypertension, Thyroid Disorder History of Any Multi-Drug Resistant Organisms: None Reported Past Surgical History: Orthopedic Surgery, Tubal Ligation Additional Past Surgical History / Comment(s): rt knee Past Psychological History: No Psychological Hx Reported Past Alcohol Use History: None Reported Past Drug Use History: None Reported General Exam - General Exam Comments Initial Comments: Visual Physical Exam Vital signs reviewed General: Well-appearing, nontoxic, no acute distress. Head: Normocephalic, atraumatic Eyes: PERRLA, EOMI ENT: Airway patent Chest: Nonlabored breathing Skin: No visual rash, normal skin tone Neuro: Alert and oriented 3 Musculoskeletal: No gross abnormalities Limitations: no limitations General appearance: alert, in no apparent distress Head exam: Present: atraumatic, normocephalic, normal inspection Eye exam: Present: normal appearance, PERRL, EOMI. Absent: scleral icterus, conjunctival injection, periorbital swelling ENT exam: Present: normal exam, normal oropharynx, mucous membranes moist Neck exam: Present: normal inspection, full ROM. Absent: tenderness, meningismus, lymphadenopathy Respiratory exam: Present: normal lung sounds bilaterally. Absent: respiratory distress, wheezes, rales, rhonchi, stridor Cardiovascular Exam: Present: regular rate, normal rhythm, normal heart sounds. Absent: systolic murmur, diastolic murmur, rubs, gallop, clicks Course Vital Signs 10/06/23 10/06/23 08:24 10:47 Temperature 99.1 F Pulse Rate 90 77 Respiratory 20 20 Rate Blood Pressure 201/93 147/67 O2 Sat by Pulse 94 L 96 Oximetry Medical Decision Making - Medical Decision Making I completed the quick note portion of this chart signed Jonny Cruz PA-C Was pt. sent in by a medical professional or institution ([facility] Michael, INTERNET ASSESSOR, urgent care, hospital, or detention...) When possible be specific @ -No Did you speak to anyone other than the patient for history (EMS, parent, family, police, friend...)? What history was obtained from this source @ -No Did you review nursing and triage notes (agree or disagree)? Why? @ -I reviewed and agree with nursing and triage notes Were old charts reviewed (outside hosp., previous admission, EMS record, old EKG, old radiological studies, urgent care reports/EKG's, detention records)? Report findings @ -No old charts were reviewed Differential Diagnosis (chest pain, altered mental status, abdominal pain women, abdominal pain men, vaginal bleeding, weakness, fever, dyspnea, syncope, headache, dizziness, GI bleed, back pain, seizure, CVA, palpatations, mental health, musculoskeletal)? @ -COVID 19, RSV, influenza, pneumonia, acute bronchitis, URI, this list is not all inclusive EKG interpreted by me (3pts min.). @ -None X-rays interpreted by me (1pt min.). @ -Chest x-ray shows no acute cardio pulmonary process CT interpreted by me (1pt min.). @ -None done U/S interpreted by me (1pt. min.). @ -None done What testing was considered but not performed or refused? (CT, X-rays, U/S, labs)? Why? @ -None What meds were considered but not given or refused? Why? @ -None Did you discuss the management of the patient with other professionals (professionals i.e. , PA, INTERNET ASSESSOR, lab, RT, psych nurse, social contact worker, auto body mechanic, teacher, department of natural resources officer, outpatient case manager)? Give summary @ -No Was smoking cessation discussed for >3mins.? @ -No Was critical care preformed (if so, how long)? @ -No Were there social determinants of health that impacted care today? How? (Homelessness, low income, unemployed, alcoholism, drug addiction, transportation, low edu. Level, literacy, decrease access to med. care, senior care, rehab)? @ -No Was there de-escalation of care discussed even if they declined (Discuss DNR or withdrawal of care, Hospice)? DNR status @ -No What co-morbidities impacted this encounter? (DM, HTN, Smoking, COPD, CAD, Cancer, CVA, ARF, Chemo, Hep., AIDS, mental health diagnosis, sleep apnea, morbid obesity)? @ -None Was patient admitted / discharged? Hospital course, mention meds given and route, prescriptions, significant lab abnormalities, going to OR and other pertinent info. @ -Discharge patient desires see positive patient has no evidence of pneumonia. Patient will be discharged with supportive treatment return parameters were discussed. Undiagnosed new problem with uncertain prognosis? @ -No Drug Therapy requiring intensive monitoring for toxicity (Heparin, Nitro, Insulin, Cardizem)? @ -No Were any procedures done? @ -No Diagnosis/symptom? @ -RSV Acute, or Chronic, or Acute on Chronic? @ -Acute Uncomplicated (without systemic symptoms) or Complicated (systemic symptoms)? @ -Uncomplicated Side effects of treatment? @ -No Exacerbation, Progression, or Severe Exacerbation? @ -No Poses a threat to life or bodily function? How? (Chest pain, [place], [place], pneumonia, PE, COPD, DKA, ARF, appy, cholecystitis, CVA, Diverticulitis, Homicidal, Suicidal, threat to staff... and all critical care pts) @ -No - Lab Data Result diagrams: 10/06/23 08:23 10/06/23 08:23 Lab Results 10/06/23 10/06/23 10/06/23 Range/Units 08:23 08:23 08:23 WBC 12.9 H (3.8-10.6) k/uL RBC 5.36 (3.80-5.40) m/uL Hgb 14.4 (11.4-16.0) gm/dL Hct 42.9 (34.0-46.0) % MCV 80.1 (80.0-100.0) fL MCH 26.9 (25.0-35.0) pg MCHC 33.6 (31.0-37.0) g/dL RDW 14.3 (11.5-15.5) % Plt Count 248 (150-450) k/uL MPV 7.1 Neutrophils % 88 % Lymphocytes % 6 % Monocytes % 4 % Eosinophils % 1 % Basophils % 1 % Neutrophils # 11.4 H (1.3-7.7) k/uL Lymphocytes # 0.7 L (1.0-4.8) k/uL Monocytes # 0.5 (0-1.0) k/uL Eosinophils # 0.1 (0-0.7) k/uL Basophils # 0.1 (0-0.2) k/uL Sodium 137 (137-145) mmol/L Potassium 3.5 (3.5-5.1) mmol/L Chloride 99 (98-107) mmol/L Carbon Dioxide 24 (22-30) mmol/L Anion Gap 14 mmol/L BUN 11 (7-17) mg/dL Creatinine 0.55 (0.52-1.04) mg/dL Est GFR (CKD-EPI)AfAm >90 (>60 ml/min/1.73 sqM) Est GFR (CKD-EPI)NonAf >90 (>60 ml/min/1.73 sqM) Glucose 149 H (74-99) mg/dL Calcium 9.5 (8.4-10.2) mg/dL Total Bilirubin 0.8 (0.2-1.3) mg/dL AST 22 (14-36) U/L ALT 21 (4-34) U/L Alkaline Phosphatase 132 H (38-126) U/L Troponin I <0.012 (0.000-0.034) ng/mL Total Protein 8.0 (6.3-8.2) g/dL Albumin 4.4 (3.5-5.0) g/dL Influenza Type A (PCR) (Not Detectd) Influenza Type B (PCR) (Not Detectd) RSV (PCR) (Not Detectd) SARS-CoV-2 (PCR) (Not Detectd) 10/06/23 Range/Units 08:23 WBC (3.8-10.6) k/uL RBC (3.80-5.40) m/uL Hgb (11.4-16.0) gm/dL Hct (34.0-46.0) % MCV (80.0-100.0) fL MCH (25.0-35.0) pg MCHC (31.0-37.0) g/dL RDW (11.5-15.5) % Plt Count (150-450) k/uL MPV Neutrophils % % Lymphocytes % % Monocytes % % Eosinophils % % Basophils % % Neutrophils # (1.3-7.7) k/uL Lymphocytes # (1.0-4.8) k/uL Monocytes # (0-1.0) k/uL Eosinophils # (0-0.7) k/uL Basophils # (0-0.2) k/uL Sodium (137-145) mmol/L Potassium (3.5-5.1) mmol/L Chloride (98-107) mmol/L Carbon Dioxide (22-30) mmol/L Anion Gap mmol/L BUN (7-17) mg/dL Creatinine (0.52-1.04) mg/dL Est GFR (CKD-EPI)AfAm (>60 ml/min/1.73 sqM) Est GFR (CKD-EPI)NonAf (>60 ml/min/1.73 sqM) Glucose (74-99) mg/dL Calcium (8.4-10.2) mg/dL Total Bilirubin (0.2-1.3) mg/dL AST (14-36) U/L ALT (4-34) U/L Alkaline Phosphatase (38-126) U/L Troponin I (0.000-0.034) ng/mL Total Protein (6.3-8.2) g/dL Albumin (3.5-5.0) g/dL Influenza Type A (PCR) Not Detected (Not Detectd) Influenza Type B (PCR) Not Detected (Not Detectd) RSV (PCR) Detected A (Not Detectd) SARS-CoV-2 (PCR) Not Detected (Not Detectd) Disposition Clinical Impression: RSV infection Disposition: HOME SELF-CARE Condition: Stable Instructions (If sedation given, give patient instructions): Respiratory Syncytial Virus (ED) Additional Instructions: Please return to the Emergency Department if symptoms worsen or any other concerns. Prescriptions: Benzonatate [Tessalon Perles] 100 mg PO TID PRN #15 capsule PRN Reason: Cough Is patient prescribed a controlled substance at d/c from ED?: No Referrals: Nonstaff,Physician [Primary Care Provider] - 1-2 days Time of Disposition: 10:06
[2023-10-06 08:40] VITALS: RESP 20; TEMP 99.1
[2023-10-06 08:53] LABS: Basophils # (A) 0.1 k/uL (0-0.2); Basophils % (A) 1 %; Eosinophils # (A) 0.1 k/uL (0-0.7); Eosinophils % (A) 1 %; HCT 42.9 % (34.0-46.0); HGB 14.4 gm/dL (11.4-16.0); Lymphocytes # (A) 0.7 k/uL (1.0-4.8); Lymphocytes % (A) 6 %; MCH 26.9 pg (25.0-35.0); MCHC 33.6 g/dL (31.0-37.0); MCV 80.1 fL (80.0-100.0); Mean Platelet Volume 7.1; Monocytes # (A) 0.5 k/uL (0-1.0); Monocytes % (A) 4 %; Neutrophils # (A) 11.4 k/uL (1.3-7.7); Neutrophils % (A) 88 %; Platelet Count 248 k/uL (150-450); RBC 5.36 m/uL (3.80-5.40); RDW 14.3 % (11.5-15.5); WBC 12.9 k/uL (3.8-10.6)
--- NOTE | 2023-10-06 08:56 | XR ---
EXAMINATION TYPE: XR chest 2V DATE OF EXAM: 10/06/2023 COMPARISON: 01/05/2017 HISTORY: 68 year-old female shortness of breath, chest pain, difficulty breathing TECHNIQUE: PA and lateral views FINDINGS: Heart normal size. Mild atherosclerotic arch calcifications. Hyperinflation. Mild interstitial promin ence. [facility] mid and lower thoracic spine. No consolidation or pleural effusion. Old left-sided rib fra cture deformities. IMPRESSION: COPD. No acute process seen.
[2023-10-06 09:04] LABS: ALT 21 U/L (4-34); AST 22 U/L (14-36); African American GFR (CKD) >90 (>60 ml/min/1.73 sqM); Albumin 4.4 g/dL (3.5-5.0); Alkaline Phosphatase 132 U/L (38-126); Anion Gap 14 mmol/L; Blood Urea Nitrogen 11 mg/dL (7-17); Calcium 9.5 mg/dL (8.4-10.2); Carbon Dioxide 24 mmol/L (22-30); Chloride 99 mmol/L (98-107); Glucose 149 mg/dL (74-99); Non-African American GFR(CKD) >90 (>60 ml/min/1.73 sqM); Potassium 3.5 mmol/L (3.5-5.1); Sodium 137 mmol/L (137-145); Total Bilirubin 0.8 mg/dL (0.2-1.3)
[2023-10-06 10:59] VITALS: BP 147/67; PULSE 77
== END 2023-10-06 10:48 | disposition home or self-care (01) ==
LOC: EC 08:14
DX: R06.02 Shortness of breath (principal); B97.4 Respiratory syncytial virus as the cause of diseases classified elsewhere; I10 Essential (primary) hypertension; E78.5 Hyperlipidemia, unspecified; E07.9 Disorder of thyroid, unspecified; Z79.899 Other long term (current) drug therapy; Z79.890 Hormone replacement therapy; Z20.822 Contact with and (suspected) exposure to COVID-19; Z91.040 Latex allergy status; Z88.0 Allergy status to penicillin; Z88.2 Allergy status to sulfonamides; Z88.5 Allergy status to narcotic agent; Z88.8 Allergy status to other drugs, medicaments and biological substances; Z88.1 Allergy status to other antibiotic agents
CPT/HCPCS: 36415; 71046; 80053; 84484; 85025; 87636; 93005; 99285

== ENCOUNTER → 2024-07-07 | Outpatient (CLI) | payer MEDICARE, OTHER ==
[2024-07-07 13:11] LABS: Creatinine,Urine Random 13.6 mg/dL; Protein/Creatinine Ratio,Urine 0.662
--- NOTE | 2024-07-07 13:33 | XR ---
EXAMINATION TYPE: XR chest 2V DATE OF EXAM: 07/07/2024 COMPARISON: 10/06/2023 HISTORY: Shortness of breath TECHNIQUE: Frontal and lateral views of the chest are obtained. FINDINGS: Scattered senescent parenchymal changes noted. Hyperinflation compatible with COPD. No evidence for infiltrate. No evidence for atelectasis. Heart size is stable. Mediastinal structures are stable and grossly unremarkable. No evidence for hilar prominence. Degenerative changes dorsal spine. IMPRESSION: 1. No evidence for acute pulmonary disease. [facility], , 07/07/2024 1:31 PM
[2024-07-07 15:24] LABS: Basophils # (A) 0.07 X 10*3/uL (0.00-0.10); Basophils % (A) 0.9 %; Eosinophils # (A) 0.25 X 10*3/uL (0.04-0.35); Eosinophils % (A) 3.2 %; HCT 43.2 % (37.2-46.3); HGB 13.8 g/dL (12.0-15.0); Lymphocytes # (A) 1.82 X 10*3/uL (0.90-5.00); Lymphocytes % (A) 23.1 %; MCH 25.8 pg (27.0-32.0); MCHC 31.9 g/dL (32.0-37.0); MCV 80.9 FL (80.0-97.0); Mean Platelet Volume 9.6 FL (9.5-12.2); Monocytes # (A) 0.74 X 10*3/uL (0.20-1.00); Monocytes % (A) 9.4 %; NRBC Per 100 WBC 0 X 10*3/uL (0.00-0.01); Neutrophils # (A) 4.99 X 10*3/uL (1.80-7.70); Neutrophils % (A) 63.1 %; Platelet Count 271 X 10*3/uL (140-440); RBC 5.34 X 10*6/uL (4.10-5.20); RDW 14.7 % (11.5-14.5); WBC 7.89 X 10*3/uL (4.50-10.00)
[2024-07-07 15:45] LABS: Chol/HDL Ratio 3.12 Ratio; Creatine Kinase 87 U/L (26-186); LDL Cholesterol,Calculated 83.6 mg/dL (0.0-131.0); Magnesium 1.9 mg/dL (1.5-2.4)
[2024-07-07 15:46] LABS: % Iron Saturation 14.09 (12.00-45.00); ALT 19 U/L (8-44); AST 19 U/L (13-35); Albumin 4.5 g/dL (3.8-4.9); Albumin/Globulin Ratio 1.45 Ratio (1.60-3.17); Alkaline Phosphatase 130 U/L (41-126); BUN/Creat Ratio 17.25 Ratio (12.00-20.00); Blood Urea Nitrogen 13.8 mg/dL (9.0-27.0); Calcium 9.9 mg/dL (8.7-10.3); Carbon Dioxide 28.1 mmol/L (21.6-31.8); Chloride 100 mmol/L (96-109); Ferritin 24.2 ng/mL (10.0-291.0); Globulin 3.1 g/dL (1.6-3.3); Glucose 120 mg/dL (70-110); Iron 72 UG/DL (50-170); Potassium 4.5 mmol/L (3.5-5.5); Sodium 142 mmol/L (135-145); Total Bilirubin 0.6 mg/dL (0.3-1.2); Total Iron Binding Capacity 511 UG/DL (228-460); Total Protein 7.6 g/dL (6.2-8.2); Uric Acid 5.2 mg/dL (2.9-7.7)
[2024-07-07 16:04] LABS: Erythrocyte Sedimentation Rate 30 mm/Hr (0-30)
[2024-07-07 16:32] LABS: Appearance,Urine Clear (Clear); Bilirubin,Urine Negative (Negative); Blood,Urine Negative (Negative); Color,Urine Yellow (Yellow); Ketones,Urine Negative (Negative); Nitrite,Urine Negative (Negative); Specific Gravity,Urine 1.006 (1.001-1.030); Urobilinogen,Urine 0.2 E.U./DL
[2024-07-07 19:27] LABS: DNA Double-Stranded Negative (Negative)
[2024-07-07 21:02] LABS: Microalbumin Creatinine Ratio <75 mg/g Cr (0-30)
== END | disposition home or self-care (01) ==
LOC: LABWHC1 11:35
PROVIDERS: ATTEND Internal Medicine
DX: Z00.00 Encounter for general adult medical examination without abnormal findings (principal); I10 Essential (primary) hypertension; D64.9 Anemia, unspecified; E87.8 Other disorders of electrolyte and fluid balance, not elsewhere classified; M10.00 Idiopathic gout, unspecified site; N39.0 Urinary tract infection, site not specified; E66.9 Obesity, unspecified; M35.9 Systemic involvement of connective tissue, unspecified; R73.9 Hyperglycemia, unspecified; R06.02 Shortness of breath
CPT/HCPCS: 36415; 71046; 80053; 80061; 81003; 82043; 82306; 82550; 82570; 82728; 83540; 83550; 83735; 84100; 84156; 84443; 84550; 85025; 85652; 86038; 86140; 86225; 87077; 87086; 87186

== ENCOUNTER → 2025-02-10 | Outpatient (CLI) | payer MEDICARE, OTHER ==
[2025-02-10 14:54] LABS: Basophils # (A) 0.05 X 10*3/uL (0.00-0.10); Basophils % (A) 0.6 %; Eosinophils # (A) 0.17 X 10*3/uL (0.04-0.35); HCT 43.2 % (37.2-46.3); HGB 13.6 g/dL (12.0-15.0); Lymphocytes # (A) 1.67 X 10*3/uL (0.90-5.00); Lymphocytes % (A) 19.4 %; MCH 25.3 pg (27.0-32.0); MCHC 31.5 g/dL (32.0-37.0); MCV 80.3 FL (80.0-97.0); Mean Platelet Volume 9.8 FL (9.5-12.2); Monocytes # (A) 0.77 X 10*3/uL (0.20-1.00); Monocytes % (A) 8.9 %; NRBC Per 100 WBC 0 X 10*3/uL (0.00-0.01); Neutrophils # (A) 5.93 X 10*3/uL (1.80-7.70); Neutrophils % (A) 68.9 %; Platelet Count 281 X 10*3/uL (140-440); RBC 5.38 X 10*6/uL (4.10-5.20); RDW 15.4 % (11.5-14.5); WBC 8.61 X 10*3/uL (4.50-10.00)
[2025-02-10 15:04] LABS: Erythrocyte Sedimentation Rate 36 mm/Hr (0-30)
--- NOTE | 2025-02-10 15:29 | XR ---
EXAMINATION TYPE: XR chest 2V DATE OF EXAM: 02/10/2025 10:41 AM COMPARISON: 11/20/2024 CLINICAL INDICATION: Female, 69 years old with history of SOB [id number], , TECHNIQUE: Frontal and lateral views FINDINGS: Heart normal size. Mild hyperinflation. DISH midthoracic spine. No consolidation or pleural effusion. Hazy lung densities related to overlying soft tissue. IMPRESSION: Limited by large body habitus. No definite acute process. Possible underlying COPD. [facility], Workstation: [id number], 02/10/2025 3:27 PM
[2025-02-10 15:35] LABS: Creatine Kinase 70 U/L (26-186)
[2025-02-10 15:36] LABS: % Iron Saturation 10.58 (12.00-45.00); ALT 22 U/L (8-44); AST 19 U/L (13-35); Albumin 4.4 g/dL (3.8-4.9); Albumin/Globulin Ratio 1.42 Ratio (1.60-3.17); Alkaline Phosphatase 134 U/L (41-126); Blood Urea Nitrogen 12.8 mg/dL (9.0-27.0); Calcium 9.8 mg/dL (8.7-10.3); Carbon Dioxide 23.8 mmol/L (21.6-31.8); Chloride 101 mmol/L (96-109); Chol/HDL Ratio 3.46 Ratio; Ferritin 16.7 ng/mL (10.0-291.0); Globulin 3.1 g/dL (1.6-3.3); Glucose 128 mg/dL (70-110); Iron 51 UG/DL (50-170); LDL Cholesterol,Calculated 116.3 mg/dL (0.0-131.0); Phosphorus 3.5 mg/dL (2.4-5.1); Potassium 4.4 mmol/L (3.5-5.5); Sodium 138 mmol/L (135-145); Total Bilirubin 0.5 mg/dL (0.3-1.2); Total Iron Binding Capacity 482 UG/DL (228-460); Total Protein 7.5 g/dL (6.2-8.2); Uric Acid 5.6 mg/dL (2.9-7.7)
== END | disposition home or self-care (01) ==
LOC: LABWHC1 10:07
PROVIDERS: ATTEND Internal Medicine
DX: Z00.00 Encounter for general adult medical examination without abnormal findings (principal); I10 Essential (primary) hypertension; D64.9 Anemia, unspecified; E87.8 Other disorders of electrolyte and fluid balance, not elsewhere classified; M10.9 Gout, unspecified; E78.5 Hyperlipidemia, unspecified; N39.0 Urinary tract infection, site not specified; E66.9 Obesity, unspecified; M35.9 Systemic involvement of connective tissue, unspecified; R73.9 Hyperglycemia, unspecified; R06.02 Shortness of breath
CPT/HCPCS: 36415; 71046; 80053; 80061; 82306; 82550; 82728; 83516; 83540; 83550; 83735; 84100; 84443; 84550; 85025; 85379; 85652; 86038; 86140